=== PATIENT | male | born 1955 | race Caucasian/White ===

== ENCOUNTER 2016-09-20 17:39 | Inpatient (IN) ==
[2016-09-20] MEDS ORDERED: NS 1,000 ML IV ONE (18:29)
[2016-09-20] MEDS ORDERED: ZOFRAN IV ONE (18:29)
[2016-09-20] MEDS ORDERED: MORPHINE IV ONE (18:29)
[2016-09-20] MEDS ORDERED: VANCOMYCIN 1 GM/NS 1 GM/250 ML IVPB IV ONE (18:30)
[2016-09-20] MEDS ORDERED: TYLENOL PO ONE (18:31)
--- NOTE | 2016-09-20 18:32 | PROVIDER DOCUMENTATION ---
HPI-Fever - General Chief Complaint: Cold Symptoms Stated Complaint: "CAN'T MANUEVER" Time Seen by Provider: 09/20/16 18:20 Source: patient Allergies/Adverse Reactions: Patient Allergies Allergy/AdvReac Type Severity Reaction Status Date / Time metformin Allergy RASH, AND Verified 09/20/16 18:14 SWELLING Home Medications: Home Medication List Medication Instructions Recorded Confirmed Last Taken Type Clopidogrel Bisulfate [Plavix] 75 mg PO DAILY 09/08/14 09/20/16 09/30/14 05:00 History Dipyridamole/Aspirin S.a. 1 each PO BID 09/08/14 09/20/16 09/30/14 05:00 History [Aggrenox] Fenofibrate Nanocrystallized 160 mg PO DAILY 09/08/14 09/20/16 09/30/14 05:00 History [Fenofibrate] Furosemide [Lasix] 20 mg PO DAILY 09/08/14 09/20/16 09/30/14 05:00 History Insulin Glargine,Hum.rec.anlog 70 unit SQ QHS 09/08/14 09/20/16 09/30/14 05:00 History [Lantus Solostar] Insulin NPH Hum/Reg Insulin Hm 40 unit SQ QHS 09/08/14 09/20/16 09/30/14 05:00 History [Humulin 70-30 Vial] Insulin NPH Hum/Reg Insulin Hm 50 unit SQ QA 09/08/14 09/20/16 11/09/14 20:00 History [Humulin 70-30 Vial] Isosorbide Mononitrate E.r. [Imdur] 60 mg PO DAILY 09/08/14 09/20/16 09/30/14 05 :00 History Lisinopril/Hydrochlorothiazide 1 each PO BID 09/08/14 09/20/16 09/30/14 05:00 History [Lisinopril-Hctz 10-12.5 mg Tab] Metoprolol [Lopressor] 50 mg PO BID 09/08/14 09/20/16 09/30/14 05:00 History Nitroglycerin [Nitrostat] 0.4 mg SL DIRECTED 09/08/14 09/20/16 09/30/14 05: 00 History Omeprazole [Prilosec] 20 mg PO DAILY 04/11/1709/20/16 09/30/14 05:00 History PRAVAstatin [Pravachol] 40 mg PO DAILY 09/08/14 09/20/16 09/30/14 05:00 History Potassium Chloride 20 meq PO DIRECTED 09/08/14 09/20/16 09/30/14 05:00 History Pregabalin [Lyrica] 15 mg PO BID 09/08/14 09/20/16 09/30/14 05:00 History Hydrocodone/Acetaminophen [[place] 1 each PO Q4-6H PRN PRN #20 tablet 09/30/14 Unknown Rx 5-325 Tablet] Hydrocodone/APAP 5 mg/325 mg 1 - 2 tab PO Q6H PRN PRN #30 tablet 11/09/14 Unknown Rx [[place]-5] - History of Present Illness-Fever Nature of Presenting Problem: 60 year old WM presents with c/o right thumb tenderness, weakness, cough, fever , chills, fatigue. Pt reports he has been feeling weak for 2 days with subjective fever/chills. Pt reports yesterday he had his right thumb slammed in a door, was evaluated at [facility] and sent home with pain medications. Pt reports he awoke this morning with swelling, increased pain and red streaks up his arm. Pt reports associated nausea, urinary frequency, weakness, non-focal. Pt reports he has taken all his medications today and his BG Was 190 this morning. he reports his BG runs between 190-600. Fever Severity/Quality: reports: subjective, greater than 102 F (upon arrival) Onset/Duration: reports: 2 days ago Timing: reports: still present, constant, getting worse Severity: reports: mild, moderate Recent Illness?: reports: other (right thumb injury) Fever Therapy [employer]: Initiated none Cognitive Baseline: alert, oriented x3 Similar Symptoms Previously?: No Recently seen or treated by another doctor?: Yes - Glascow Coma Score Best Eye Response (Luis Manuel): (4) open spontaneously Best Verbal Response (Blanchard): (5) oriented Best Motor Response (Luis Manuel): (6) obeys commands Blanchard Total: 15 Review of Systems - Adult - REVIEW OF SYSTEMS - ADULT Constitutional: reports: see HPI, chills, fever, fatique Eyes: reports: no symptoms reported. denies: discharge, blurred vision, double vision, redness Ears, Nose, Mouth & Throat: reports: no symptoms reported. denies: ear discharge, ear pain, nose pain, loose teeth, throat pain, throat swelling Cardiovascular: reports: no symptoms reported. denies: chest pain, palpitations , syncope Respiratory: reports: see HPI, chronic cough, cough. denies: dyspnea on exertion, excessive sputum production, shortness of breath, wheezing Gastrointestinal: reports: see HPI, nausea, poor appetite. denies: abdominal pain, diarrhea, difficulty swallowing, frequent heartburn, rectal bleeding, vomiting Genitourinary: reports: see HPI, frequency. denies: dysuria, flank pain, hematuria, urgency Musculoskeletal: reports: see HPI, bone pain, joint pain, joint swelling Integumentary: reports: no symptoms reported. denies: hives, itching, skin sores/ulcer Neurological: reports: no symptoms reported. denies: ataxia, dizziness/vertigo , headache/migraines Psychiatric: reports: no symptoms reported Endocrine: reports: see HPI, polyuria. denies: increased hunger, increased thirst Hematologic/Lymphatic: reports: no symptoms reported Allergic/Immunologic: reports: no symptoms reported All Other Systems: Reviewed and Negative Past History - Adult - PAST MEDICAL HISTORY-ADULT Review of Records: reports: Old Records Reviewed, Nursing Assessment Review, Medications Reviewed, Social history reviewed & non-contributory. Major Childhood Illnesses: reports: denies history Cardiovascular: reports: CHF, HTN, hyperlipidemia, [place] Respiratory: reports: COPD, sleep apnea Gastrointestinal: reports: cancer (colon) Obstetrical/Gynecological: reports: denies history Genitourinary: reports: denies history Musculoskeletal: reports: other (right BKA) Neurological: reports: CVA Endocrine/Immune: reports: Diabetes Diabetes Type: Type 2 Diabetes controlled by:: Insulin Dependent Other Conditions: reports: MRSA - PRIOR SURGERIES/PROCEDURES Surgical/Procedure History: reports: appendectomy, bowel surgery (colon), orthopedic (extremity) (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 negative: no apparent distress, moderate distress, lethargic, slow to respond, obtunded, combative - EYES Eyes: pink conjunctivae. negative: conjuctival exudate, pale conjunctivae, sclera injected, scleral icterus, subconjunctival hemorrhage - HEAD, EARS, NOSE, MOUTH & THROAT HENMT: normocephalic/atraumatic, moist mucous membranes, normal ENT inspection - NECK Neck: non-tender, full range of motion, supple, normal inspection. negative: C- spine tenderness, limited range of motion, tender lateral, tender midline - RESPIRATORY Respiratory: chest non-tender, lungs clear, normal breath sounds, no pleuratic chest pain, no respiratory distress, no accessory muscle use. negative: respiratory distress, decreased breath sounds, accessory muscle use, crackles, rales, rhonchi, stridor, wheezing - CARDIOVASCULAR Cardiovascular: normal peripheral pulses, regular rate, rhythm, no edema, no gallop, no JVD, no murmur, tachycardia - GASTROINTESTINAL (ABDOMEN) Abdominal Exam: normal bowel sounds, non tender, soft, no organomegaly, no pulsatile mass. negative: distended, guarding, rigid, rebound, tenderness - LYMPHATIC Lymphatic: no adenopathy - MUSCULOSKELETAL Back Exam: normal inspection, no CVA tenderness, no vertebral tenderness. negative: CVA tenderness, decreased range of motion, swelling, vertebral tenderness Extremity: normal gait, no pedal edema, no calf tenderness, normal capillary refill, pelvis stable, erythema, inflammation, swelling (right thumb with swelling, tenderness, erythema spreading with streaks up in to the right brachial region, warm/hot to touch.), tenderness. negative: normal range of motion, non-tender, normal inspection, abnormal NV exam, pulse deficit, slow capillary refill Peripheral Pulses: radial (R): 3+, radial (L): 3+, dorsalis-pedis (L): 3+ - SKIN Integumentary: normal color, normal turgor, warm/dry, erythema, swelling, tenderness. negative: pallor, petechiae, purpura, rash - NEUROLOGIC Neurologic: grossly normal, no motor/sensory deficits - PSYCHIATRIC Psych/Mental Status: normal mood/affect, normal thought content, normal thought process, oriented x 3 Progress - PLAN OF CARE/RESULTS Progress/Plan/Lab Results: Vital Signs - 8 hr 09/20/16 18:05 09/20/16 20:00 09/20/16 20:06 Temperature 102.8 F H Pulse Rate 115 H 108 H 106 H Pulse Rate [Sitting] Pulse Rate [Standing] Pulse Rate [Supine] Respiratory Rate 20 18 27 H Blood Pressure 155/087 166/85 163/86 Blood Pressure [Sitting] Blood Pressure [Standing] Blood Pressure [Supine] O2 Sat by Pulse Oximetry 96 92 L 93 L 09/20/16 20:13 09/20/16 20:15 Temperature Pulse Rate 106 H Pulse Rate [Sitting] 109 H Pulse Rate [Standing] 109 H Pulse Rate [Supine] 106 H Respiratory Rate 26 H Blood Pressure 158/85 Blood Pressure [Sitting] 125/109 Blood Pressure [Standing] 142/71 Blood Pressure [Supine] 163/86 O2 Sat by Pulse Oximetry 91 L Laboratory Results - last 24 hr 09/20/16 09/20/16 09/20/16 18:13 18:15 18:45 WBC RBC Hgb Hct MCV MCH MCHC RDW Std Deviation Plt Count MPV Immature Gran % (Auto) Neut % (Auto) Lymph % (Auto) [place] % (Auto) Eos % (Auto) Baso % (Auto) Immature Gran # (Auto) Neut # (Auto) Lymph # (Auto) [place] # (Auto) Eos # (Auto) Baso # (Auto) Specimen Type ARTERIAL Sample Site R RADIAL pH 7.44 pCO2 33 L pO2 58 L HCO3 24.0 Base Excess -1.0 Oxyhemoglobin 90.9 L ABG O2 Sat (Calculated) 18.3 ABG O2 Saturation 94.1 L ABG Carboxyhemoglobin 2.30 ABG Methemoglobin 1.1 Alex Test YES A-a O2 Difference 50.0 Total Hemoglobin 14.3 Lactate 0.90 Blood Gas Modality ROOM AIR FiO2 % 21.0 Sodium 131 L Potassium 4.0 Chloride 94 L Carbon Dioxide 20 L Anion Gap 18 BUN 20 Creatinine 1.0 Estimated GFR/1.73 m2 > 60 BUN/Creatinine Ratio 20 Glucose 390 H POC Glucose 333 H Calculated Osmolality 281 Calcium 9.2 Total Bilirubin 0.30 AST 15 ALT 15 Alkaline Phosphatase 125 H Total Protein 7.3 Albumin 4.0 Globulin 3.0 Albumin/Globulin Ratio 1.0 Plasma Lactate Urine Source Urine Color Urine Clarity Urine pH Ur Specific [place] Urine Protein Urine Ketones Urine Blood Urine Nitrite Urine Bilirubin Urine Urobilinogen Urine Microscopic RBC Urine WBC Urine Microscopic WBC Ur Epithelial Cells Urine Glucose Acetone Level Influenza A (Rapid) Influenza B (Rapid) 09/20/16 09/20/16 09/20/16 18:45 18:45 19:37 WBC 9.48 RBC 4.93 Hgb 14.5 Hct 42.1 MCV 85.4 MCH 29.4 MCHC 34.4 RDW Std Deviation 13.4 Plt Count 218 MPV 11.5 H Immature Gran % (Auto) 0.2 Neut % (Auto) 80.2 H Lymph % (Auto) 11.0 L [place] % (Auto) 8.0 Eos % (Auto) 0.2 Baso % (Auto) 0.4 Immature Gran # (Auto) 0.02 Neut # (Auto) 7.60 H Lymph # (Auto) 1.04 L [place] # (Auto) 0.76 H Eos # (Auto) 0.02 Baso # (Auto) 0.04 Specimen Type Sample Site pH pCO2 pO2 HCO3 Base Excess Oxyhemoglobin ABG O2 Sat (Calculated) ABG O2 Saturation ABG Carboxyhemoglobin ABG Methemoglobin Alex Test A-a O2 Difference Total Hemoglobin Lactate Blood Gas Modality FiO2 % Sodium Potassium Chloride Carbon Dioxide Anion Gap BUN Creatinine Estimated GFR/1.73 m2 BUN/Creatinine Ratio Glucose POC Glucose Calculated Osmolality Calcium Total Bilirubin AST ALT Alkaline Phosphatase Total Protein Albumin Globulin Albumin/Globulin Ratio Plasma Lactate 0.9 Urine Source Urine Color Urine Clarity Urine pH Ur Specific [place] Urine Protein Urine Ketones Urine Blood Urine Nitrite Urine Bilirubin Urine Urobilinogen Urine Microscopic RBC Urine WBC Urine Microscopic WBC Ur Epithelial Cells Urine Glucose Acetone Level NEGATIVE Influenza A (Rapid) Influenza B (Rapid) 09/20/16 09/20/16 19:50 19:54 WBC RBC Hgb Hct MCV MCH MCHC RDW Std Deviation Plt Count MPV Immature Gran % (Auto) Neut % (Auto) Lymph % (Auto) [place] % (Auto) Eos % (Auto) Baso % (Auto) Immature Gran # (Auto) Neut # (Auto) Lymph # (Auto) [place] # (Auto) Eos # (Auto) Baso # (Auto) Specimen Type Sample Site pH pCO2 pO2 HCO3 Base Excess Oxyhemoglobin ABG O2 Sat (Calculated) ABG O2 Saturation ABG Carboxyhemoglobin ABG Methemoglobin Alex Test A-a O2 Difference Total Hemoglobin Lactate Blood Gas Modality FiO2 % Sodium Potassium Chloride Carbon Dioxide Anion Gap BUN Creatinine Estimated GFR/1.73 m2 BUN/Creatinine Ratio Glucose POC Glucose Calculated Osmolality Calcium Total Bilirubin AST ALT Alkaline Phosphatase Total Protein Albumin Globulin Albumin/Globulin Ratio Plasma Lactate Urine Source CLEAN CATCH Urine Color YELLOW Urine Clarity CLEAR Urine pH 6.0 Ur Specific [place] 1.005 Urine Protein 2+(100 mg/dL) A Urine Ketones 2+(Moderate) A Urine Blood 1+ A Urine Nitrite NEGATIVE Urine Bilirubin NEGATIVE Urine Urobilinogen NORMAL Urine Microscopic RBC <10 Urine WBC NEGATIVE Urine Microscopic WBC <10 Ur Epithelial Cells <10 Urine Glucose 3+(500 mg/dL) A Acetone Level Influenza A (Rapid) NEGATIVE Influenza B (Rapid) NEGATIVE Orders Category Date Time Status Cardiac Monitoring DIRECTED Care 09/20/16 18:27 Active Orthostatic Vital Signs NOW Care 09/20/16 18:30 Active Saline Loc NOW Care 09/20/16 18:27 Active cxr [CHEST-2 VIEWS] [RAD] Stat Exams 09/20/16 18:28 Taken ABG [RESP] Routine Lab 09/20/16 18:15 Completed ACETONE SERUM [CHEM] Stat Lab 09/20/16 18:45 Completed BLOOD CULTURE [BLDCUL] Stat Lab 09/20/16 19:44 Ordered CBC WITH ELECTRONIC DIFF [HEME] Stat Lab 09/20/16 18:45 Completed COMPREHENSIVE METABOLIC PANEL [CHEM] Stat Lab 09/20/16 18:[address] Stat Lab 09/20/16 19:54 Completed LACTATE, PLASMA [CHEM] Stat Lab 09/20/16 19:[address] W/POSS RFLX CULT [URINALYSIS] Stat Lab 09/20/16 19:50 Completed 0.9% Sodium Chloride Inj [Ns] 1,000 ml Med 09/20/16 18:29 Discontinued IV 999 mls/hr Acetaminophen [Tylenol] Med 09/20/16 18:31 Discontinued 650 mg PO NOW ONE Insulin Human Regular [Humulin R] Med 09/20/16 20:30 Discontinued 3 unit SUBQ NOW ONE Morphine Med 09/20/16 18:29 Discontinued 4 mg IV NOW ONE Ondansetron [Zofran] Med 09/20/16 18:29 Discontinued 4 mg IV NOW ONE Vancomycin 1 gm/Ns Med 09/20/16 18:30 Discontinued 1 gm in 250 ml IV NOW Pulse Oximetry Stat Oth 09/20/16 18:27 Active EKG [EKG] Stat Ther 09/20/16 18:27 Draft Laboratory Tests 09/20/16 09/20/16 09/20/16 18:13 18:15 18:45 WBC RBC Hgb Hct MCV MCH MCHC RDW Std Deviation Plt Count MPV Immature Gran % (Auto) Neut % (Auto) Lymph % (Auto) [place] % (Auto) Eos % (Auto) Baso % (Auto) Immature Gran # (Auto) Neut # (Auto) Lymph # (Auto) [place] # (Auto) Eos # (Auto) Baso # (Auto) Specimen Type ARTERIAL Sample Site R RADIAL pH 7.44 pCO2 33 L pO2 58 L HCO3 24.0 Base Excess -1.0 Oxyhemoglobin 90.9 L ABG O2 Sat (Calculated) 18.3 ABG O2 Saturation 94.1 L ABG Carboxyhemoglobin 2.30 ABG Methemoglobin 1.1 Alex Test YES A-a O2 Difference 50.0 Total Hemoglobin 14.3 Lactate 0.90 Blood Gas Modality ROOM AIR FiO2 % 21.0 Sodium 131 L Potassium 4.0 Chloride 94 L Carbon Dioxide 20 L Anion Gap 18 BUN 20 Creatinine 1.0 Estimated GFR/1.73 m2 > 60 BUN/Creatinine Ratio 20 Glucose 390 H POC Glucose 333 H Calculated Osmolality 281 Calcium 9.2 Total Bilirubin 0.30 AST 15 ALT 15 Alkaline Phosphatase 125 H Total Protein 7.3 Albumin 4.0 Globulin 3.0 Albumin/Globulin Ratio 1.0 Plasma Lactate Urine Source Urine Color Urine Clarity Urine pH Ur Specific [place] Urine Protein Urine Ketones Urine Blood Urine Nitrite Urine Bilirubin Urine Urobilinogen Urine Microscopic RBC Urine WBC Urine Microscopic WBC Ur Epithelial Cells Urine Glucose Acetone Level Influenza A (Rapid) Influenza B (Rapid) 09/20/16 09/20/16 09/20/16 18:45 18:45 19:37 WBC 9.48 RBC 4.93 Hgb 14.5 Hct 42.1 MCV 85.4 MCH 29.4 MCHC 34.4 RDW Std Deviation 13.4 Plt Count 218 MPV 11.5 H Immature Gran % (Auto) 0.2 Neut % (Auto) 80.2 H Lymph % (Auto) 11.0 L [place] % (Auto) 8.0 Eos % (Auto) 0.2 Baso % (Auto) 0.4 Immature Gran # (Auto) 0.02 Neut # (Auto) 7.60 H Lymph # (Auto) 1.04 L [place] # (Auto) 0.76 H Eos # (Auto) 0.02 Baso # (Auto) 0.04 Specimen Type Sample Site pH pCO2 pO2 HCO3 Base Excess Oxyhemoglobin ABG O2 Sat (Calculated) ABG O2 Saturation ABG Carboxyhemoglobin ABG Methemoglobin Alex Test A-a O2 Difference Total Hemoglobin Lactate Blood Gas Modality FiO2 % Sodium Potassium Chloride Carbon Dioxide Anion Gap BUN Creatinine Estimated GFR/1.73 m2 BUN/Creatinine Ratio Glucose POC Glucose Calculated Osmolality Calcium Total Bilirubin AST ALT Alkaline Phosphatase Total Protein Albumin Globulin Albumin/Globulin Ratio Plasma Lactate 0.9 Urine Source Urine Color Urine Clarity Urine pH Ur Specific [place] Urine Protein Urine Ketones Urine Blood Urine Nitrite Urine Bilirubin Urine Urobilinogen Urine Microscopic RBC Urine WBC Urine Microscopic WBC Ur Epithelial Cells Urine Glucose Acetone Level NEGATIVE Influenza A (Rapid) Influenza B (Rapid) 09/20/16 09/20/16 19:50 19:54 WBC RBC Hgb Hct MCV MCH MCHC RDW Std Deviation Plt Count MPV Immature Gran % (Auto) Neut % (Auto) Lymph % (Auto) [place] % (Auto) Eos % (Auto) Baso % (Auto) Immature Gran # (Auto) Neut # (Auto) Lymph # (Auto) [place] # (Auto) Eos # (Auto) Baso # (Auto) Specimen Type Sample Site pH pCO2 pO2 HCO3 Base Excess Oxyhemoglobin ABG O2 Sat (Calculated) ABG O2 Saturation ABG Carboxyhemoglobin ABG Methemoglobin Alex Test A-a O2 Difference Total Hemoglobin Lactate Blood Gas Modality FiO2 % Sodium Potassium Chloride Carbon Dioxide Anion Gap BUN Creatinine Estimated GFR/1.73 m2 BUN/Creatinine Ratio Glucose POC Glucose Calculated Osmolality Calcium Total Bilirubin AST ALT Alkaline Phosphatase Total Protein Albumin Globulin Albumin/Globulin Ratio Plasma Lactate Urine Source CLEAN CATCH Urine Color YELLOW Urine Clarity CLEAR Urine pH 6.0 Ur Specific [place] 1.005 Urine Protein 2+(100 mg/dL) A Urine Ketones 2+(Moderate) A Urine Blood 1+ A Urine Nitrite NEGATIVE Urine Bilirubin NEGATIVE Urine Urobilinogen NORMAL Urine Microscopic RBC <10 Urine WBC NEGATIVE Urine Microscopic WBC <10 Ur Epithelial Cells <10 Urine Glucose 3+(500 mg/dL) A Acetone Level Influenza A (Rapid) NEGATIVE Influenza B (Rapid) NEGATIVE Orders Category Date Time Status Cardiac Monitoring DIRECTED Care 09/20/16 18:27 Active Orthostatic Vital Signs NOW Care 09/20/16 18:30 Active Saline Loc NOW Care 09/20/16 18:27 Active cxr [CHEST-2 VIEWS] [RAD] Stat Exams 09/20/16 18:28 Taken ABG [RESP] Routine Lab 09/20/16 18:15 Completed ACETONE SERUM [CHEM] Stat Lab 09/20/16 18:45 Completed BLOOD CULTURE [BLDCUL] Stat Lab 09/20/16 19:44 Ordered CBC WITH ELECTRONIC DIFF [HEME] Stat Lab 09/20/16 18:45 Completed COMPREHENSIVE METABOLIC PANEL [CHEM] Stat Lab 09/20/16 18:[address] Stat Lab 09/20/16 19:54 Completed LACTATE, PLASMA [CHEM] Stat Lab 09/20/16 19:[address] W/POSS RFLX CULT [URINALYSIS] Stat Lab 09/20/16 19:50 Completed 0.9% Sodium Chloride Inj [Ns] 1,000 ml Med 09/20/16 18:29 Discontinued IV 999 mls/hr Acetaminophen [Tylenol] Med 09/20/16 18:31 Discontinued 650 mg PO NOW ONE Morphine Med 09/20/16 18:29 Discontinued 4 mg IV NOW ONE Ondansetron [Zofran] Med 09/20/16 18:29 Discontinued 4 mg IV NOW ONE Vancomycin 1 gm/Ns Med 09/20/16 18:30 Discontinued 1 gm in 250 ml IV NOW Pulse Oximetry Stat Oth 09/20/16 18:27 Active EKG [EKG] Stat Ther 09/20/16 18:27 Draft Orders Category Date Time Status Cardiac Monitoring DIRECTED Care 09/20/16 18:27 Active Orthostatic Vital Signs NOW Care 09/20/16 18:30 Active Saline Loc NOW Care 09/20/16 18:27 Active cxr [CHEST-2 VIEWS] [RAD] Stat Exams 09/20/16 18:28 Taken ABG [RESP] Routine Lab 09/20/16 18:15 Completed ACETONE SERUM [CHEM] Stat Lab 09/20/16 18:45 Completed BLOOD CULTURE [BLDCUL] Stat Lab 09/20/16 19:44 Ordered CBC WITH ELECTRONIC DIFF [HEME] Stat Lab 09/20/16 18:45 Completed COMPREHENSIVE METABOLIC PANEL [CHEM] Stat Lab 09/20/16 18:[address] Stat Lab 09/20/16 19:54 Completed LACTATE, PLASMA [CHEM] Stat Lab 09/20/16 19:[address] W/POSS RFLX CULT [URINALYSIS] Stat Lab 09/20/16 19:50 Completed 0.9% Sodium Chloride Inj [Ns] 1,000 ml Med 09/20/16 18:29 Discontinued IV 999 mls/hr Acetaminophen [Tylenol] Med 09/20/16 18:31 Discontinued 650 mg PO NOW ONE Morphine Med 09/20/16 18:29 Discontinued 4 mg IV NOW ONE Ondansetron [Zofran] Med 09/20/16 18:29 Discontinued 4 mg IV NOW ONE Vancomycin 1 gm/Ns Med 09/20/16 18:30 Discontinued 1 gm in 250 ml IV NOW Pulse Oximetry Stat Oth 09/20/16 18:27 Active EKG [EKG] Stat Ther 09/20/16 18:27 Draft Vital Signs - 24 hr 09/20/16 18:05 09/20/16 20:13 Temperature 102.8 F H Pulse Rate 115 H Pulse Rate [Sitting] 109 H Pulse Rate [Standing] 109 H Pulse Rate [Supine] 106 H Respiratory Rate 20 Blood Pressure 155/087 Blood Pressure [Sitting] 125/109 Blood Pressure [Standing] 142/71 Blood Pressure [Supine] 163/86 O2 Sat by Pulse Oximetry [address] Clayton, agrees with plan of care and treatment/ admission. Vital Signs - 24 hr 09/20/16 18:05 09/20/16 20:00 09/20/16 20:06 Temperature 102.8 F H Pulse Rate 115 H 108 H 106 H Pulse Rate [Sitting] Pulse Rate [Standing] Pulse Rate [Supine] Respiratory Rate 20 18 27 H Blood Pressure 155/087 166/85 163/86 Blood Pressure [Sitting] Blood Pressure [Standing] Blood Pressure [Supine] O2 Sat by Pulse Oximetry 96 92 L 93 L 09/20/16 20:13 09/20/16 20:15 09/20/16 20:38 Temperature 101 F H Pulse Rate 106 H 103 H Pulse Rate [Sitting] 109 H Pulse Rate [Standing] 109 H Pulse Rate [Supine] 106 H Respiratory Rate 26 H 23 Blood Pressure 158/85 161/79 Blood Pressure [Sitting] 125/109 Blood Pressure [Standing] 142/71 Blood Pressure [Supine] 163/86 O2 Sat by Pulse Oximetry 91 L 90 L Result Diagrams: 09/20/16 18:45 09/20/16 18:45 - CONSULTS/PCP/HOSPITALIST Notification #1 *Consult/PCP/Hospitalist*: Dr. Sorto Time Discussed: 20:39 Consult Disposition: Admit Departure - Departure Time of Disposition Decision: 20:41 DIAGNOSIS: Cellulitis Qualifiers: Site of cellulitis: extremity Site of cellulitis of extremity: finger Laterality: right Qualified Code(s): L03.011 - Cellulitis of right finger Diabetes Qualifiers: Diabetes mellitus type: type 2 Diabetes mellitus complication status: with hyperglycemia Diabetes mellitus oil heaterman insulin use: unspecified nursing home insulin use status Qualified Code(s): E11.65 - Type 2 diabetes mellitus with hyperglycemia Disposition: HOME 01 Certified Medical Emergency: Emergent Condition: Stable Referrals and Follow-Ups: None,PCP [Primary Care Provider] - Attestation - Physician/ MIKE Attestation Patient care was provided by Advanced Practice Provider:: Yes Advanced Practice Provider:: Henok Mejía Advanced Practice Provider documentation review:: The Mid-level provider documentation, treatment plan and medical decision making was reviewed by the physician who agrees with all treatment and medical decision making by the MLP.
[2016-09-20 18:45] LABS: BLOOD TYPE ARTERIAL; DRAW SITE R RADIAL; METHB 1.1 % (0.0-1.5); O2(CT) 18.3 mL/dL (15.0-23.0); PCO2(98.6) 33 mmHg (35-45); PO2(98.6) 58 mmHg (60-100); SAMPLE BLOOD; SAO2 94.1 % (95.0-100.0); THB 14.3 g/dL (11.5-17.4); pH(98.6) 7.44 (7.35-7.45)
[2016-09-20 18:50] LABS: ALLEN TEST YES; MODALITY ROOM AIR
[2016-09-20 19:03] LABS: MANUAL DIFF NEEDED? NO
--- NOTE | 2016-09-20 19:03 | EKG Report ---
Test Performed on : 09/20/2016 6:45:39 PM Test Reason : weakness Blood Pressure : / mmHG Vent. Rate : 111 BPM Atrial Rate : 111 BPM P-R Int : 136 ms QRS Dur : 084 ms QT Int : 324 ms P-R-T Axes : 009 025 095 degrees QTc Int : 440 ms Sinus tachycardia. Nonspecific T wave abnormality Abnormal ECG When compared with ECG of 09-NOV-2014 21:07, No significant change was found Unconfirmed Result
[2016-09-20 19:06] LABS: BASO% 0.4 % (0.0-0.8); EOS# 0.02 X1000 (0.0-0.7); EOS% 0.2 % (0.0-10.0); HEMATOCRIT 42.1 % (42.0-52.0); HEMOGLOBIN 14.5 g/dL (14.0-18.0); IMM GRAN# 0.02 X1000 (0.0-0.04); IMM GRAN% 0.2 % (0.0-0.5); LYMPH# 1.04 X1000 (1.2-3.4); MCH 29.4 PG (27-31); MCHC 34.4 g/dL (33-37); MCV 85.4 FL (81-99); MONO# 0.76 X1000 (0.11-0.59); MPV 11.5 FL (7.4-10.4); NEUT% 80.2 % (42.2-75.2); PLT 218 X1000 (130-400); RBC 4.93 XMIL (4.7-6.1)
[2016-09-20 19:34] LABS: AGAP 18; ALKALINE PHOSPHATASE 125 U/L (32-122); BUN 20 mg/dL (8-22); CALCIUM 9.2 mg/dL (8.8-10.2); CHLORIDE 94 mmol/L (98-107); COSMO 281; GOT 15 U/L (10-34); GPT 15 U/L (10-44); SODIUM 131 mmol/L (136-145); TCO2 20 mmol/L (25-35); TOTAL PROTEIN 7.3 g/dL (6.3-8.3)
[2016-09-20 20:10] LABS: URINE CULTURE PL NEEDED? NO
[2016-09-20 20:24] LABS: BILIRUBIN URINE NEGATIVE (NEGATIVE); BLOOD URINE 1+ (NEGATIVE); CLARITY CLEAR (CLEAR); COLOR YELLOW; LEUKOCYTES URINE NEGATIVE (NEGATIVE); NITRITE URINE NEGATIVE (NEGATIVE); PROTEIN URINE 2+(100 mg/dL) mg/dL (NEGATIVE); SP GRAVITY URINE 1.005; URINE SOURCE CLEAN CATCH; UROBILINOGEN URINE NORMAL
[2016-09-20 20:25] LABS: URINE EPITHELIAL CELLS <10 /HPF (<10); URINE RBC <10 /HPF (<10); URINE WBC <10 /HPF (<10)
[2016-09-20] MEDS ORDERED: HUMULIN R SUBQ ONE (20:30)
[2016-09-20] MEDS ORDERED: HUMULIN R (PARKWAY) ONE (21:02)
[2016-09-21] MEDS ORDERED: VANCOMYCIN IV PER PHARMACY MISC SCH (00:30)
[2016-09-21] MEDS: MORPHINE IV PRN ×4 (00:53→15:16)
[2016-09-21] MEDS ORDERED: VANCOMYCIN 1 GM/NS 1 GM/250 ML IVPB IV ONE (01:00)
[2016-09-21] MEDS: HUMULIN R (PARKWAY) SUBQ SCH ×3 (06:16→17:54)
--- NOTE | 2016-09-21 06:17 | Diag Imaging Result Document ---
PROCEDURE NAME: CHEST-2 VIEWS - 09/20/2016 FRONTAL AND LATERAL CHEST, TWO VIEWS: COMPARISON: Compared to 11/09/2014. FINDINGS: The lungs are well expanded. The heart is not enlarged. The vessels are not distended. There are no infiltrates. No pleural effusions. There is a calcified right paratracheal lymph node. IMPRESSION: No pneumonia.
--- NOTE | 2016-09-21 09:54 | Diag Imaging Result Document ---
PROCEDURE NAME: FINGER(S)-RIGHT - 09/21/2016 RIGHT THUMB, THREE VIEWS: FINDINGS: No fracture. No dislocation. IMPRESSION: No acute bony injury.
--- NOTE | 2016-09-21 09:58 | Diag Imaging Result Document ---
PROCEDURE NAME: HEAD W/O CONTRAST - 09/21/2016 CT BRAIN WITHOUT CONTRAST: COMPARISON: 11/09/2014. FINDINGS: No parenchymal hemorrhage. No epidural or subdural hematoma. No subarachnoid hemorrhage. No mass identified on this noncontrasted exam. No hydrocephalus. No sinus opacification. IMPRESSION: No hemorrhage. Negative brain CT without contrast.
[2016-09-21 10:24] LABS: MANUAL DIFF NEEDED? NO
[2016-09-21 10:29] LABS: BASO% 0.2 % (0.0-0.8); EOS# 0.07 X1000 (0.0-0.7); EOS% 0.7 % (0.0-10.0); HEMATOCRIT 39.3 % (42.0-52.0); HEMOGLOBIN 13.4 g/dL (14.0-18.0); IMM GRAN# 0.04 X1000 (0.0-0.04); IMM GRAN% 0.4 % (0.0-0.5); LYMPH# 1.43 X1000 (1.2-3.4); LYMPH% 14.9 % (20.5-51.1); MCH 29.6 PG (27-31); MCHC 34.1 g/dL (33-37); MCV 86.8 FL (81-99); MONO# 1.06 X1000 (0.11-0.59); MPV 11.4 FL (7.4-10.4); NEUT% 72.8 % (42.2-75.2); PLT 210 X1000 (130-400); RBC 4.53 XMIL (4.7-6.1)
[2016-09-21] MEDS ORDERED: NORCO-5 PO PRN (11:59)
[2016-09-21] MEDS ORDERED: NITROGLYCERIN SL SCH (12:00)
[2016-09-21] MEDS ORDERED: KLOR-CON POWDER PACKET PO SCH (12:00)
[2016-09-21] MEDS: LASIX PO SCH (13:11)
--- NOTE | 2016-09-21 14:53 | HISTORY AND PHYSICAL ---
CHIEF COMPLAINT: Syncope. HISTORY OF PRESENT ILLNESS: This is a 60-year-old male, who presented to the emergency room after having a syncopal episode. The patient states that he "fell out" and his brother-in- law was present and stated that he could not wake him up for a bit. Therefore, he was brought in to the emergency room for further evaluation and treatment. On arrival, the patient complained of weakness, cough and congestion with fever as well as right thumb pain after slamming his right thumb in a door about 48 hours prior. According to the ER records, the patient stated that shortly after and slamming his thumb in the door, he was evaluated at [place] [facility], sent home with pain medications. During this interval, he has developed swelling, increased pain and red streaks up his right arm. In the emergency room, he is noted to have a white count of 9.4 with a sodium of 131 and blood sugars ranging from 330-390. He did have a temperature of 102.8 degrees at this time. Blood cultures were drawn. He was given vancomycin as well as IV hydration. Blood sugars were covered with insulin and he was admitted for further evaluation and treatment. PAST MEDICAL HISTORY: CAD status post stents in 2014. CVA in 2008. Diabetes type 2. Hypertension. Sleep apnea. TIA. Prostate cancer. Colon cancer. 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 Left shoulder surgery. Appendectomy. SOCIAL HISTORY: He denies alcohol, tobacco, or illicit drug use. ALLERGIES: Metformin which causes a rash and swelling. HOME MEDICATIONS: Will be verified with his pharmacy and a list will be obtained. REVIEW OF SYSTEMS: A 14 point review of systems is discussed with patient with pertinent positives being syncopal episode, subjective fever, chills, generalized weakness, fatigue, right thumb pain with swelling and redness. He denied chest pain, palpitations, productive cough, shortness of breath, PND, orthopnea, nausea, vomiting, diarrhea, black or bloody vomitus, black or bloody stools, hematuria, dysuria, frequency, urgency. PHYSICAL EXAMINATION: GENERAL: This is a 60-year-old male who is sitting in the bed with no distress. HEENT: Head is normocephalic, atraumatic. Pupils equal, round, react to light. EOMs are intact. Sclerae anicteric. Mucous membranes are moist. NECK: Supple with trachea midline. CARDIOVASCULAR: Regular rate and rhythm. S1 and S2 are appreciated. PULMONARY: Breath sounds are clear with no increased work of breathing noted. GASTROINTESTINAL: Abdomen is soft, nontender, nondistended with bowel sounds in all 4 quadrants. BACK: No CVAT. No spine tenderness. MUSCULOSKELETAL: Good range of motion of joints. NEUROLOGIC: He is alert and oriented x3. SKIN: Warm and dry with redness, warmth and edema to his right hand. DIAGNOSTICS: WBC is 9.4, with a hemoglobin of 14.5, hematocrit 42.1 and platelets of 218,000. Sodium is 131, potassium 4, BUN 20, creatinine 1 with glucose of 390. Urinalysis has 1+ blood, 2+ ketones, 3+ glucose with negative acetone. Negative flu A and B. ASSESSMENT AND PLAN: 1. Syncope. We will obtain a computed tomography of the head, neurologic checks, orthostatics vital signs. He will be placed on telemetry. 2. Cellulitis right hand. Failed outpatient treatment. Blood cultures have been obtained. We will continue with vancomycin. Antibiotics may be changed as appropriate according to sensitivities. 3. Diabetes type 2 with hyperglycemia. We will obtain a hemoglobin A1c. We will identify his home medications and continue. In the interim he will be placed on pattern blood glucose with sliding scale insulin. 4. Hypertension. We will identify his home medication and continue. 5. Coronary artery disease, status post percutaneous coronary intervention. We will identify home medications and continue. 6. History of cerebrovascular accident noted. 7. History of colon cancer. History of prostate cancer noted. 8. We will x-ray his right thumb. Dictated by SIDNEY Monae for Edwin Velazquez MD cc: SIDNEY Monae MD
[2016-09-21] MEDS: INVOKANA PO SCH (17:54)
[2016-09-21] MEDS: VANCOMYCIN 2,100 MG in NS 500 ML IV SCH (17:55)
[2016-09-21] MEDS ORDERED: LYRICA PO SCH (21:00)
[2016-09-21] MEDS ORDERED: NON-FORMULARY MED (Lisinopril/Hydrochlorothiazide [Lisinopril-Hctz 10-12.5 Mg Tab] 1 EACH) PO SCH (21:00)
[2016-09-21] MEDS: LOPRESSOR PO SCH (21:52)
[2016-09-21] MEDS: LYRICA PO SCH (21:52)
[2016-09-21] MEDS: LANTUS INSULIN (PARKWAY) SUBQ SCH (21:53)
[2016-09-21] MEDS: HUMULIN 70/30 (PARKWAY) SUBQ SCH (21:53)
[2016-09-21] MEDS: ZOFRAN IV PRN (21:53)
[2016-09-21] MEDS: TYLENOL PO PRN (22:08)
[2016-09-22] MEDS: HUMULIN R (PARKWAY) SUBQ SCH ×5 (00:56→22:12)
[2016-09-22] MEDS: AGGRENOX PO SCH (02:09)
[2016-09-22] MEDS: PLAVIX PO SCH (02:10)
[2016-09-22] MEDS: IMDUR PO SCH (02:10)
[2016-09-22 06:19] LABS: HEMATOCRIT 40.9 % (42.0-52.0); HEMOGLOBIN 13.7 g/dL (14.0-18.0); MCH 29.1 PG (27-31); MCHC 33.5 g/dL (33-37); MPV 11.5 FL (7.4-10.4); RBC 4.7 XMIL (4.7-6.1)
[2016-09-22 06:39] LABS: AGAP 14; BUN 14 mg/dL (8-22); CALCIUM 8.9 mg/dL (8.8-10.2); CHLORIDE 95 mmol/L (98-107); COSMO 266; POTASSIUM 3.3 mmol/L (3.5-5.1); SODIUM 132 mmol/L (136-145); TCO2 23 mmol/L (25-35)
[2016-09-22] MEDS: HUMULIN 70/30 (PARKWAY) SUBQ SCH ×2 (08:37→22:09)
[2016-09-22] MEDS: PRINIVIL PO SCH ×2 (08:38→21:55)
[2016-09-22] MEDS: INVOKANA PO SCH (08:38)
[2016-09-22] MEDS: PRILOSEC PO SCH (08:38)
[2016-09-22] MEDS: HYDROCHLOROTHIAZIDE PO SCH ×2 (08:38→21:55)
[2016-09-22] MEDS: LOPRESSOR PO SCH ×2 (08:38→21:55)
[2016-09-22] MEDS: LASIX PO SCH (08:38)
[2016-09-22] MEDS: LYRICA PO SCH ×2 (08:38→21:55)
[2016-09-22] MEDS: ZOSYN 3.375 GM/NS 3.375 GM/50 ML IVPB IV SCH ×3 (08:45→21:55)
[2016-09-22] MEDS: MORPHINE IV PRN (08:56)
[2016-09-22] MEDS ORDERED: TRICOR PO SCH (09:00)
[2016-09-22] MEDS ORDERED: PRAVACHOL PO SCH (09:00)
[2016-09-22] MEDS: VANCOMYCIN 2,100 MG in NS 500 ML IV SCH (10:55)
[2016-09-22] MEDS: ZOFRAN IV PRN ×2 (10:55→15:31)
[2016-09-22] MEDS: TYLENOL PO PRN ×2 (11:34→23:56)
--- NOTE | 2016-09-22 11:44 | PROGRESS NOTE ---
DATE: 09/22/2016 SUBJECTIVE: The patient notes that his right thumb is much more swollen and more tender. He is having streaking up to his right elbow. PHYSICAL EXAMINATION: Vital Signs: Temperature 99, pulse 98, respiratory 21, blood pressure 142/60 to 168/75. Sat 95% on room air. General: Patient is awake, alert, oriented. Currently in no real respiratory distress. Pleasant. Speech is regular. Memory intact. Neck: Supple. Cardiovascular: Regular rate. Chest: Relatively clear. Abdomen: Soft. Extremities: Moves all extremities. Skin: He is noted to have edema and swelling, as well as redness of his distal thumb, likely secondary to the trauma to his nail bed. Was also noted to have redness that has tracked up to his mid-elbow. DIAGNOSTIC DATA: CBC and CMP essentially normal, with a potassium of 3.3, sodium 132, and glucose 111. ASSESSMENT: 1. Cellulitis with edema of his right thumb. 2. Hyponatremia. 3. Hypokalemia. 4. Syncope, resolved. 5. Diabetes with hyperglycemia. 6. Hypertension. 7. Known coronary disease. PLAN: Will continue patient on his current antibiotics, as his labs appear to be improved, although the redness seems to have been worse today. We will consult ortho, as he certainly may need to have incision and drainage of his distal thumb. Will add Rocephin and will follow. cc: Edwin Velazquez MD
[2016-09-22] MEDS: NORCO-5 PO PRN (15:31)
[2016-09-22] MEDS: DILAUDID IV PRN (20:05)
[2016-09-22] MEDS ORDERED: XYLOCAINE 1% INJ ONE (20:06)
[2016-09-22] MEDS ORDERED: XYLOCAINE-MPF 1% 5 ML ONE (20:15)
[2016-09-22] MEDS: LANTUS INSULIN (PARKWAY) SUBQ SCH (22:09)
[2016-09-23] MEDS: ZOSYN 3.375 GM/NS 3.375 GM/50 ML IVPB IV SCH ×4 (03:23→21:07)
[2016-09-23] MEDS: NORCO-5 PO PRN ×3 (03:49→17:57)
[2016-09-23 04:00] LABS: HEMATOCRIT 36.9 % (42.0-52.0); HEMOGLOBIN 12.7 g/dL (14.0-18.0); MCH 29.9 PG (27-31); MCHC 34.4 g/dL (33-37); MCV 86.8 FL (81-99); RBC 4.25 XMIL (4.7-6.1)
[2016-09-23 04:12] LABS: ALBUMIN 3.2 g/dL (3.5-5.0); CALCIUM 8.3 mg/dL (8.8-10.2); POTASSIUM 3.6 mmol/L (3.5-5.1); TOTAL BILIRUBIN 0.3 mg/dL (0.20-1.00); TOTAL PROTEIN 6.5 g/dL (6.3-8.3)
[2016-09-23 04:14] LABS: HEMOGLOBIN A1C 12.7 % (4.8-6.0)
[2016-09-23] MEDS: VANCOMYCIN 2,100 MG in NS 500 ML IV SCH (05:06)
--- NOTE | 2016-09-23 06:02 | CONSULTATION ---
DATE OF CONSULTATION: 09/22/2016 CHIEF COMPLAINT: Left thumb pain. PRESENT ILLNESS: A 60-year-old male with diabetes, reports injuring his thumb several days ago. He initially bumped it on a glass table over the dorsum of the left thumbnail. Subsequent to that, he had it closed in a door by a grandchild. He had increasing pain, tenderness, swelling, redness, and warmth over the thumb. He is admitted to the hospital for possible cellulitis. The dorsal aspect of the thumb has continued to swell and he has developed a subcu abscess or paronychia over the area. I was consulted for orthopedic management. PAST MEDICAL HISTORY: Is up-to-date and accurate per his current admission record. MEDICINES: Are as listed per the hospital chart. PHYSICAL EXAMINATION: Extremities: Examination of the The hand specifically reveals no tenderness or swelling over the flexor tendon sheath of the thumb or other digits. There is roughly 1/2 x 3 cm dorsal swelling over the eponychial fold extending over the IP joint. There is good capillary refill in the thumb-tip currently. The swelling has fluctuance with no drainage currently. There was some mild erythema or warmth extending up along the radial border of the forearm. ASSESSMENT: Left thumb paronychia/eponychial abscess. PLAN: The patient underwent a local block of the superficial radial nerve with 1% lidocaine. A dorsal abscess was then decompressed with an 18-gauge needle and opened it up. Cultures were obtained and sent for laboratory analysis for aerobic and anaerobic cultures. Bandage was applied. He will be maintained on oral IV antibiotics. If he improves, then no further surgical care will be necessary. cc: Osvaldo Champagne MD
--- NOTE | 2016-09-23 06:03 | OPERATIVE NOTE ---
PROCEDURE DATE: 09/22/2016 PREOPERATIVE DIAGNOSIS: Paronychial abscess left thumb. POSTOPERATIVE DIAGNOSIS: Paronychial abscess left thumb. PROCEDURE: Debridement and irrigation of abscess. ANESTHESIA: Is 1% local. SURGEON: Anibal Champagne MD. COMPLICATION: None. PROCEDURE IN DETAIL: A 60-year-old male with a paronychial abscess over the left thumb. He presents for incision and drainage. Risks and benefits were discussed and he is willing to proceed. Patient underwent field block with the superficial radial nerve of 1% lidocaine with sterile technique at the bedside. Afterwards, an 18-gauge needle was used to longitudinally open the abscess over the dorsal aspect of the thumb. Cultures were taken for aerobic and anaerobic cultures. The abscess was decompressed and sterilely dressed. He tolerated procedure well. No complications were noted. cc: Osvaldo Champagne MD
[2016-09-23] MEDS: HUMULIN R (PARKWAY) SUBQ SCH ×4 (06:40→21:12)
[2016-09-23] MEDS: HUMULIN 70/30 (PARKWAY) SUBQ SCH ×2 (09:30→21:12)
[2016-09-23] MEDS: LOPRESSOR PO SCH ×2 (09:31→21:07)
[2016-09-23] MEDS: PLAVIX PO SCH (09:31)
[2016-09-23] MEDS: PRINIVIL PO SCH ×2 (09:31→21:07)
[2016-09-23] MEDS: PRILOSEC PO SCH (09:31)
[2016-09-23] MEDS: IMDUR PO SCH (09:32)
[2016-09-23] MEDS: HYDROCHLOROTHIAZIDE PO SCH ×2 (09:32→21:08)
[2016-09-23] MEDS: JANUVIA PO SCH (09:32)
[2016-09-23] MEDS: LASIX PO SCH (09:32)
[2016-09-23] MEDS: LYRICA PO SCH ×2 (09:32→21:07)
[2016-09-23] MEDS: AGGRENOX PO SCH ×2 (09:33→21:07)
[2016-09-23] MEDS: INVOKANA PO SCH (10:51)
[2016-09-23] MEDS: DILAUDID IV PRN (12:25)
--- NOTE | 2016-09-23 15:03 | PROGRESS NOTE ---
DATE: 09/23/2016 SUBJECTIVE: The patient states that his hand feels much better after undergoing I and D last night. He has less pain. He denies any fever or chills. OBJECTIVE/PHYSICAL EXAM: Vital Signs: Blood pressure is 127/62, with a heart rate of 90, respirations are 18, temperature is 99.3 degrees with room air saturations of 96%-98%. HEENT: Head is normocephalic, atraumatic. Pupils equal, round, react to light. EOMs are intact. Sclerae anicteric. Mucous membranes moist. Neck: Supple. Trachea midline. Cardiovascular: Regular rate and rhythm. S1, S2 appreciated. Pulmonary: Breath sounds are clear with no increased work of breathing noted. Gastrointestinal: Abdomen is soft, nontender, nondistended with bowel sounds in all 4 quadrants. Skin: Warm and dry. No rashes or lesions noted. Extremities: No clubbing, cyanosis, or edema. Calves are nontender. Pulses are palpable x4. He does have a dressing to his thumb that is dry and intact. LABS: WBC is 10, with hemoglobin 12.7, hematocrit 36.9, and platelets of 227,000. Sodium is 131, potassium 3.6, BUN 18, creatinine 1.5, with a glucose of 131. A1c is 12.7. ASSESSMENT AND PLAN: 1. Cellulitis with edema of his right thumb. He is status post incision and drainage with cultures taken per Dr. Champagne. We will continue with his current antibiotic regimen. If cultures return positive we may change antibiotics according to sensitivity results. 2. Hyponatremia. 3. Hypokalemia. 4. Syncope. 5. Diabetes with hyperglycemia. 6. Hypertension. 7. Known coronary artery disease. 8. We will continue to trend his electrolytes and blood sugars and cover with sliding scale insulin. Dictated by SIDNEY Monae for Edwin Velazquez MD cc: SIDNEY Monae MD
[2016-09-23] MEDS: TYLENOL PO PRN (18:50)
[2016-09-23] MEDS: LANTUS INSULIN (PARKWAY) SUBQ SCH (21:12)
[2016-09-23] MEDS: MAXIPIME 2 GM/NS 2 GM/100 ML IVPB IV SCH (21:47)
[2016-09-24] MEDS: VANCOMYCIN 2,100 MG in NS 500 ML IV SCH (00:08)
[2016-09-24] MEDS: NORCO-5 PO PRN ×2 (00:22→20:26)
[2016-09-24] MEDS: ZOSYN 3.375 GM/NS 3.375 GM/50 ML IVPB IV SCH ×3 (04:37→18:00)
[2016-09-24 06:19] LABS: HEMATOCRIT 33.5 % (42.0-52.0); HEMOGLOBIN 11.1 g/dL (14.0-18.0); MCH 28.9 PG (27-31); MCHC 33.1 g/dL (33-37); MCV 87.2 FL (81-99); MPV 11.5 FL (7.4-10.4); RBC 3.84 XMIL (4.7-6.1)
[2016-09-24 06:36] LABS: CALCIUM 8.2 mg/dL (8.8-10.2); MAGNESIUM 2.3 mg/dL (1.5-2.7); POTASSIUM 2.9 mmol/L (3.5-5.1); TOTAL BILIRUBIN 0.3 mg/dL (0.20-1.00)
[2016-09-24] MEDS: HUMULIN R (PARKWAY) SUBQ SCH ×4 (06:52→21:41)
[2016-09-24] MEDS: MAXIPIME 2 GM/NS 2 GM/100 ML IVPB IV SCH ×2 (09:33→20:16)
[2016-09-24] MEDS: PLAVIX PO SCH (09:41)
[2016-09-24] MEDS: AGGRENOX PO SCH ×2 (09:41→20:23)
[2016-09-24] MEDS: PRILOSEC PO SCH (09:41)
[2016-09-24] MEDS: HYDROCHLOROTHIAZIDE PO SCH ×2 (09:41→20:23)
[2016-09-24] MEDS: PRINIVIL PO SCH ×2 (09:41→20:23)
[2016-09-24] MEDS: LYRICA PO SCH ×2 (09:41→20:23)
[2016-09-24] MEDS: LOPRESSOR PO SCH ×2 (09:42→20:23)
[2016-09-24] MEDS: INVOKANA PO SCH (09:42)
[2016-09-24] MEDS: IMDUR PO SCH (09:42)
[2016-09-24] MEDS: HUMULIN 70/30 (PARKWAY) SUBQ SCH ×2 (09:42→20:22)
[2016-09-24] MEDS: LASIX PO SCH (09:42)
[2016-09-24] MEDS: JANUVIA PO SCH (09:42)
[2016-09-24] MEDS: POTASSIUM CHLORIDE 20 MEQ/SWI 20 MEQ/100 ML IVPB IV SCH ×2 (10:29→13:00)
[2016-09-24] MEDS: NS 500 ML IV SCH ×2 (11:06→13:01)
--- NOTE | 2016-09-24 11:40 | PROGRESS NOTE ---
DATE: 09/24/2016 SUBJECTIVE: Patient notes that his thumb has a little bit more pain and his hand has more swelling than yesterday. Notes that the erythema is back into his mid wrist area which had in improved and all but disappeared yesterday. Notes that he had a fever last night documented to 102.7. PHYSICAL: T current 98.5 degrees, T-max 102.7 degrees at 6:50 yesterday. Pulse 92, respiratory rate 18, BP 136/60.General: Patient is awake, alert, oriented. He is in no respiratory distress. He is having more pain in his right hand and thumb area. HEENT: Normocephalic, atraumatic. Neck: Supple. CV: Regular rate. Chest: Relatively clear. Neurologic: No focal changes. He has good distal sensation to the thumb on the right. LABS: Hemoglobin and hematocrit 11 and 33. Sodium 135, potassium 2.9, creatinine 1.7, glucose 135, albumin 3.0. ASSESSMENT: 1. Cellulitis status post I and D by Dr. Champagne. Micro is still without any culture. He unfortunately is having increased redness and swelling of his right hand as well as redness to his mid forearm on the right. We stopped vancomycin as his serum creatinine has elevated. Switched him over to daptomycin. Last night added cefepime after his fever. We will recheck blood culture if he has another fever. We will continue to follow. Currently he is on daptomycin which started this a.m., cefepime last night. We will continue sliding scale insulin. Continue to follow. Further orders as needed. 2. Hypertension. 3. Known coronary artery disease. cc: Edwin eVlazquez MD
[2016-09-24] MEDS: NS IV SCH (13:49)
[2016-09-24] MEDS: CUBICIN IV SCH (13:49)
[2016-09-24] MEDS: LANTUS INSULIN (PARKWAY) SUBQ SCH (20:22)
[2016-09-24] MEDS: DUONEB (A & A) INH PRN (21:32)
[2016-09-24] MEDS ORDERED: VANCOMYCIN 2,100 MG in NS 500 ML IV SCH (23:00)
[2016-09-25] MEDS: ZOSYN 3.375 GM/NS 3.375 GM/50 ML IVPB IV SCH ×4 (01:20→18:31)
[2016-09-25 06:28] LABS: HEMATOCRIT 34.5 % (42.0-52.0); HEMOGLOBIN 11.5 g/dL (14.0-18.0); MCH 29.2 PG (27-31); MCHC 33.3 g/dL (33-37); MCV 87.6 FL (81-99); RBC 3.94 XMIL (4.7-6.1)
[2016-09-25] MEDS: NORCO-5 PO PRN (06:43)
[2016-09-25] MEDS: HUMULIN R (PARKWAY) SUBQ SCH ×4 (06:46→23:27)
[2016-09-25 06:54] LABS: CALCIUM 8.6 mg/dL (8.8-10.2); POTASSIUM 3.3 mmol/L (3.5-5.1); TOTAL BILIRUBIN 0.2 mg/dL (0.20-1.00); TOTAL PROTEIN 6.4 g/dL (6.3-8.3)
[2016-09-25] MEDS: DUONEB (A & A) INH PRN ×2 (07:36→19:18)
[2016-09-25] MEDS: MAXIPIME 2 GM/NS 2 GM/100 ML IVPB IV SCH ×2 (08:59→20:03)
[2016-09-25] MEDS: LASIX PO SCH (10:25)
[2016-09-25] MEDS: IMDUR PO SCH (10:25)
[2016-09-25] MEDS: JANUVIA PO SCH (10:26)
[2016-09-25] MEDS: LYRICA PO SCH ×2 (10:26→20:01)
[2016-09-25] MEDS: PRINIVIL PO SCH ×2 (10:26→20:02)
[2016-09-25] MEDS: PRILOSEC PO SCH (10:26)
[2016-09-25] MEDS: KLOR-CON PO SCH (10:26)
[2016-09-25] MEDS: HYDROCHLOROTHIAZIDE PO SCH ×2 (10:26→20:02)
[2016-09-25] MEDS: HUMULIN 70/30 (PARKWAY) SUBQ SCH ×2 (10:27→20:03)
[2016-09-25] MEDS: AGGRENOX PO SCH ×2 (10:27→20:01)
[2016-09-25] MEDS: INVOKANA PO SCH (10:27)
[2016-09-25] MEDS: LOPRESSOR PO SCH ×2 (10:27→20:01)
[2016-09-25] MEDS: PLAVIX PO SCH (10:28)
[2016-09-25] MEDS: DILAUDID IV PRN ×2 (10:39→18:41)
--- NOTE | 2016-09-25 12:17 | PROGRESS NOTE ---
DATE: 09/25/2016 SUBJECTIVE: The patient notes he is still having pain in his hand. It is uncertain if it is getting better. Denies any chest pain, palpitations. Denies any fevers or chills. PHYSICAL EXAMINATION: Vital signs: Temperature 98.1, T-max 102.7 degrees on 09/23, pulse 84, respiratory rate 18, BP 132/70, saturation 97% on room air. General: Patient is awake, alert, oriented. He is currently in no respiratory distress. He is pleasant to talk with. Speech is regular. Memory is intact. Neck: Supple. CV: Regular rate. Chest: Relatively clear. Abdomen: Soft. Extremities: Moves all extremities. Neurologic: No changes. DIAGNOSTIC DATA: CBC and CMP essentially normal. Potassium is improving at 3.3. Creatinine is better at 1.4. ASSESSMENT: 1. Acute renal failure. Seems to be improved after changing from vancomycin to daptomycin. 2. Hypokalemia. Will replace. 3. Cellulitis right thumb, improving. He actually has less swelling of his hand today. He has less erythema of his mid forearm. He has been afebrile for 36 hours after adding cefepime. His white count is also improving; therefore, will stay the course today. However, did hold his Plavix today in case this continues to worsen and he has to have further I D by ortho. His pain seems to be increased; therefore, will change his [place] to 10 and will follow. cc: Edwin Velazquez MD
[2016-09-25] MEDS: CUBICIN IV SCH (14:34)
[2016-09-25] MEDS: NS IV SCH (14:34)
[2016-09-25] MEDS: NORCO-10 PO PRN (20:01)
[2016-09-25] MEDS: LANTUS INSULIN (PARKWAY) SUBQ SCH (20:02)
[2016-09-26] MEDS: ZOSYN 3.375 GM/NS 3.375 GM/50 ML IVPB IV SCH ×2 (00:35→07:18)
[2016-09-26] MEDS: DILAUDID IV PRN ×2 (00:36→13:26)
[2016-09-26] MEDS: HUMULIN R (PARKWAY) SUBQ SCH ×4 (06:24→20:52)
[2016-09-26] MEDS: DUONEB (A & A) INH PRN ×4 (08:14→22:52)
--- NOTE | 2016-09-26 08:26 | PROGRESS NOTE ---
DATE: 09/26/2016 SUBJECTIVE: The patient notes that his hand had much increased swelling and erythema last night with a tremendous increase in pain requiring IV pain medications. Denies any fevers, chills. Denies any chest pain. Denies any other symptoms. Notes that the redness had increased into his hand and into his mid forearm. However, this morning he notes that the redness is less than where they marked it last night. The swelling has gone down some. The pain is much better. OBJECTIVE: Vital signs: Temperature 97.8 degrees, pulse 86, respiratory rate 18, BP 170/94. General: Patient is awake, alert, oriented. He is currently in no respiratory distress. He is very pleasant to talk with. Speech is regular. Memory is intact. Neck: Supple. CV: Regular rate. Chest: Clear. Abdomen: Soft. Extremities: Moves all extremities. Neurologic: No focal changes. Skin: He is noted to have less swelling visually this morning than he did yesterday. His erythema is less than the area that was marked last night by the nurse. Still having some redness extending up into his mid forearm but appears a little more pale today than it did. ASSESSMENT: 1. Cellulitis, right thumb, status post incision and drainage at the bedside. Culture unfortunately was not set up until yesterday. Will call the lab today to see if something is growing. 2. Acute renal failure. Creatinine improved after changing to daptomycin and stopping the vancomycin. We will continue cefepime. He has been afebrile for the past 48 hours after adding cefepime. 3. Hypertension. Increase lisinopril to 20 b.i.d. 4. Chronic coronary artery disease. We will continue to hold Plavix as I am uncertain if his thumb is going to need further I D. 5. Diabetes. Blood sugars are much more stable than when he initially presented to the hospital. His A1c chronically is 12.7. Blood sugars the last few days have been 120s to 150s. 6. History of colon cancer. 7. History of prostate cancer. PLAN: We will discuss the case with Dr. Ramos to get his opinion on antibiotic therapy. We will consult wound therapy to assist. Continue sliding scale insulin. Continue pain control. Further orders as needed. cc: Edwin Velazquez MD
[2016-09-26] MEDS: MAXIPIME 2 GM/NS 2 GM/100 ML IVPB IV SCH ×2 (08:35→20:50)
[2016-09-26] MEDS: HUMULIN 70/30 (PARKWAY) SUBQ SCH ×3 (08:40→20:52)
[2016-09-26] MEDS: PRILOSEC PO SCH (08:41)
[2016-09-26] MEDS: INVOKANA PO SCH (08:41)
[2016-09-26] MEDS: JANUVIA PO SCH (08:41)
[2016-09-26] MEDS: PRINIVIL PO SCH ×2 (08:41→20:52)
[2016-09-26] MEDS: IMDUR PO SCH (08:42)
[2016-09-26] MEDS: LYRICA PO SCH ×2 (08:42→20:51)
[2016-09-26] MEDS: AGGRENOX PO SCH ×2 (08:42→20:51)
[2016-09-26] MEDS: LASIX PO SCH (08:42)
[2016-09-26] MEDS: LOPRESSOR PO SCH ×2 (08:42→20:51)
[2016-09-26] MEDS: HYDROCHLOROTHIAZIDE PO SCH ×2 (08:42→20:52)
[2016-09-26] MEDS: KLOR-CON PO SCH (08:42)
[2016-09-26] MEDS: CUBICIN IV SCH (15:27)
[2016-09-26] MEDS: NS IV SCH (15:27)
--- NOTE | 2016-09-26 16:26 | Diag Imaging Result Document ---
PROCEDURE NAME: MRI UPPER EXT W/WO CONT-RIGHT - 09/26/2016 MRI OF THE RIGHT THUMB WITH AND WITHOUT IV CONTRAST: COMPARISON: No prior MRI is available for comparison. FINDINGS: There is soft tissue edema around the tip of the thumb. There is also mild focal osseous marrow edema involving the palmar tip of the distal phalanx of the thumb. Note that no discrete fracture can be identified on a previous radiograph dated 09/21/2016. An osseous marrow contusion is certainly possible. However, if there is clinical suspicion for osteomyelitis, it cannot be excluded given this finding. In fact, there is at least some degree of enhancement involving this region of the bone and the surrounding soft tissues on postcontrast images. Enhancement is possible simply as a result of recent trauma. However, this would support the possibility of focal osteomyelitis. Moreover, there appears to be a tract involving the soft tissues at the tip of the thumb that extends to the skin surface or near the skin surface to the tip of the distal phalanx of the thumb. It arises from the radial aspect of the thumb soft tissues toward the palmar aspect. It can be seen on image 9 of series 5. This could represent a deep skin laceration that extends to the bony surface. Please correlate with clinical exam. No well-defined abscess can be identified. The joint spaces appear to be preserved. IMPRESSION: Soft tissue edema and what appears to be a small soft tissue tract near the tip of the thumb that extends to the tip of the distal phalanx of the thumb where there is focal marrow edema. Focal osteomyelitis cannot be excluded. Please see the above discussion. [facility]
[2016-09-26] MEDS: LANTUS INSULIN (PARKWAY) SUBQ SCH (20:52)
[2016-09-27 06:12] LABS: HEMOGLOBIN 11.2 g/dL (14.0-18.0); MCH 29.3 PG (27-31); MCHC 32.9 g/dL (33-37); MPV 10.6 FL (7.4-10.4); RBC 3.82 XMIL (4.7-6.1)
[2016-09-27] MEDS: HUMULIN R (PARKWAY) SUBQ SCH ×4 (06:30→21:42)
[2016-09-27 06:44] LABS: AGAP 13; ALBUMIN 3.2 g/dL (3.5-5.0); ALKALINE PHOSPHATASE 88 U/L (32-122); BUN 22 mg/dL (8-22); CALCIUM 9.3 mg/dL (8.8-10.2); CHLORIDE 103 mmol/L (98-107); COSMO 288; GOT 31 U/L (10-34); GPT 23 U/L (10-44); MAGNESIUM 2.4 mg/dL (1.5-2.7); POTASSIUM 3.8 mmol/L (3.5-5.1); SODIUM 141 mmol/L (136-145); TCO2 25 mmol/L (25-35); TOTAL PROTEIN 6.5 g/dL (6.3-8.3)
[2016-09-27] MEDS: PRILOSEC PO SCH (07:45)
[2016-09-27] MEDS: MAXIPIME 2 GM/NS 2 GM/100 ML IVPB IV SCH ×2 (07:45→21:30)
[2016-09-27] MEDS: NORCO-10 PO PRN ×2 (09:40→15:42)
[2016-09-27] MEDS: JANUVIA PO SCH (09:40)
[2016-09-27] MEDS: PRINIVIL PO SCH ×2 (09:40→21:28)
[2016-09-27] MEDS: INVOKANA PO SCH (09:40)
[2016-09-27] MEDS: HYDROCHLOROTHIAZIDE PO SCH ×2 (09:41→21:28)
[2016-09-27] MEDS: AGGRENOX PO SCH ×2 (09:41→21:28)
[2016-09-27] MEDS: IMDUR PO SCH (09:41)
[2016-09-27] MEDS: KLOR-CON PO SCH (09:41)
[2016-09-27] MEDS: LOPRESSOR PO SCH ×2 (09:41→21:28)
[2016-09-27] MEDS: LASIX PO SCH (09:41)
[2016-09-27] MEDS: HUMULIN 70/30 (PARKWAY) SUBQ SCH ×2 (09:42→21:41)
[2016-09-27] MEDS: LYRICA PO SCH ×2 (09:42→21:27)
[2016-09-27 11:37] LABS: INR 0.97 (0.86-1.15); PROTIME 13.2 Seconds (12.1-15.5)
--- NOTE | 2016-09-27 11:40 | PROGRESS NOTE ---
DATE: 09/27/2016 SUBJECTIVE: The patient notes that his hand is better. He is having less pain, less swelling, less erythema. OBJECTIVE: Vital Signs: On physical, temp 99, pulse 87, respiratory 16, BP 146/67, satting 92% to 95% on room air. General: Patient is awake, alert, oriented. He is currently in no respiratory distress. He is pleasant. Speech is regular. Memory is intact. Neck: Supple. CV: Regular rate. Chest: Relatively clear. Abdomen: Soft. Extremities: Moves all extremities. Skin: He has got less swelling, less erythema, less redness of his hand and his mid forearm. His right thumb is still bandaged It is clean, dry and intact. ASSESSMENT: 1. Methicillin-resistant Staphylococcus aureus, right thumb wound. 2. Diabetes blood sugars are currently stable. Has been below 200 for the past 3 days. 3. Hypokalemia, resolved. 4. Hyponatremia, resolved. 5. Leukocytosis, resolved. 6. Fever, resolved. 7. Sepsis secondary to methicillin-resistant Staphylococcus aureus, resolved. 8. Known coronary artery disease. PLAN: The patient has been on daptomycin, cefepime and Zosyn for the past several days. His fever resolved after switching to cefepime. He was changed to daptomycin secondary to acute renal failure from vancomycin. His renal function has remained stable. In fact, has continued to improve. Currently his creatinine is 1.2 while he is on daptomycin. We will stop his Zosyn today. We will continue cefepime for 1 more day. Hopefully, stop this in the a.m., and make a decision as to whether he can go home on Bactrim or doxycycline for the next 4-6 weeks. We will discuss with infectious disease. cc: Edwin Velazquez MD
[2016-09-27] MEDS ORDERED: NS 500 ML ONE (11:46)
--- NOTE | 2016-09-27 13:11 | PROGRESS NOTE ---
DATE: 09/27/2016 SUBJECTIVE: The patient has severe cellulitis of his thumb, and on MRI it appears that he may have an osteomyelitis of the thumb. Culture taken from the thumb is growing methicillin-resistant Staph aureus. I have discussed with Dr. Velazquez's nurse practitioner and our plans are this: I have put in a consult to get a PICC placed and I have consulted [facility] to supply daptomycin 500 mg IV daily for a period of 8 weeks. I plan to see the patient back in my office in 4 weeks, and then again at 8 weeks at which time the PICC will be stopped. The patient's diagnosis is acute of methicillin-resistant Staph aureus osteomyelitis of the thumb. I further ask the microbiology laboratory to send off the isolate for daptomycin susceptibility testing. I will be seeing the patient in the office in 4 weeks and then again at 8 weeks. DIAGNOSIS: Acute methicillin-resistant Staph aureus from osteomyelitis. cc: Les Ramos MD
[2016-09-27] MEDS: NS IV SCH (15:46)
[2016-09-27] MEDS: CUBICIN IV SCH (15:46)
--- NOTE | 2016-09-27 16:00 | Diag Imaging Result Document ---
PROCEDURE NAME: CHEST-PORTABLE - 09/27/2016 AP PORTABLE CHEST AT 1303 HOURS: FINDINGS: There is a left-sided PICC line with its tip in the superior vena cava. There is minimal atelectasis in the [id number] right lung field. Previous studies are not available for comparison. IMPRESSION: Minimal atelectasis on the right. PICC line in the superior vena cava.
[2016-09-27] MEDS: LANTUS INSULIN (PARKWAY) SUBQ SCH (21:43)
[2016-09-28] MEDS: PRILOSEC PO SCH (06:28)
[2016-09-28] MEDS: HUMULIN R (PARKWAY) SUBQ SCH (06:29)
[2016-09-28 07:31] VITALS: BP 158/61
[2016-09-28] MEDS: INVOKANA PO SCH (09:06)
[2016-09-28] MEDS: MAXIPIME 2 GM/NS 2 GM/100 ML IVPB IV SCH (09:06)
[2016-09-28] MEDS: AGGRENOX PO SCH (09:07)
[2016-09-28] MEDS: KLOR-CON PO SCH (09:07)
[2016-09-28] MEDS: PRINIVIL PO SCH (09:07)
[2016-09-28] MEDS: LOPRESSOR PO SCH (09:07)
[2016-09-28] MEDS: HYDROCHLOROTHIAZIDE PO SCH (09:07)
[2016-09-28] MEDS: JANUVIA PO SCH (09:07)
[2016-09-28] MEDS: LYRICA PO SCH (09:07)
[2016-09-28] MEDS: LASIX PO SCH (09:08)
[2016-09-28] MEDS: IMDUR PO SCH (09:19)
[2016-09-28] MEDS: HUMULIN 70/30 (PARKWAY) SUBQ SCH (09:19)
[2016-09-28] MEDS: NORCO-10 PO PRN (11:20)
--- NOTE | 2016-09-29 04:20 | DISCHARGE SUMMARY ---
ADMISSION DATE: 09/20/2016 DISCHARGE DATE: 09/28/2016 ADMISSION DIAGNOSES: 1. Syncope. 2. Cellulitis of the right hand, with failed outpatient treatment. 3. Diabetes type 2, with hyperglycemia. 4. Hypertension. 5. Coronary artery disease. 6. History of cerebrovascular accident. DISCHARGE DIAGNOSES: 1. Syncope, resolved. 2. MRSA cellulitis of the right thumb, status post incision and drainage, with mild osteomyelitis. 3. Diabetes type 2, with hyperglycemia. 4. Hypertension. 5. Coronary artery disease. 6. History of cerebrovascular accident. SUMMARY OF FINDINGS: This is a 60-year-old male, who stated that he "fell out," and his [id number] was present and stated he could not wake him up for a bit. He was brought to the emergency room. On arrival, he complained of weakness, cough, congestion, and fever, as well as right thumb pain after slamming his right thumb in a door about 48 hours prior. Stated that he had been seen at [facility] ED, sent home with pain medications. He then began developing swelling, increased pain, and red streaks up his right arm. In the emergency room, he was noted to have a white count of 9.4, sodium of 131, blood sugars ranging 330-390. He had a temperature of 102.8 degrees. He was given vancomycin, as well as IV hydration, and admitted. He had an x-ray of his finger, right, that showed no acute bony injury. Orthopedics was consulted, and he had on 09/22/2016 a debridement and irrigation of abscess for a paronychial abscess of the left thumb. He tolerated that procedure well. Wound cultures were obtained that showed MRSA of the right thumb. We did an upper extremity MRI of the right thigh that showed soft tissue edema and what appeared to be small soft tissue tract near the tip of the thumb that extended to the tip of the distal phalanx of the thumb, where there is focal marrow edema. Focal osteomyelitis could not be excluded. So, he has been placed initially on vancomycin, developed some acute kidney injury, with the creatinine getting as high as 1.7. We discontinued this and placed him on daptomycin 600 mg IV q.24 hours. His kidney function returned to normal. This case was discussed with Dr. Les Ramos, infectious disease, who recommended 8 weeks of IV therapy at home. He has been set up with [facility] home infusion for his daily daptomycin infusion. He had a PICC line placed on 09/27/2016. It is felt that he can safely be discharged home. He is to follow up with Dr. Ramos in 4 weeks. He is to follow up with Dr. Hall on 10/10/2016 at 10 a.m. Again, his home infusion is set up with [facility]. He will have home health with [facility]. DISCHARGE MEDICATIONS: He will continue his home medications, and he will continue the daptomycin 600 mg IV q.24 hours. TIME SPENT: 35 minutes. Dictated by SIDNEY Ochoa for Miki Sorto MD cc: SIDNEY Ochoa MD Leroy F. Harris, MD Robert S. Tapscott, MD
== END 2016-09-28 11:43 | disposition home health service (06) ==
LOC: P.ED 17:39 → P.MEDSURG 17:39 → OBSVTOIN 21:15 → SUATTDRO 21:15
PROVIDERS: ATTEND Internal Medicine